=== PATIENT | male | born 1970 | race Caucasian/White ===

== ENCOUNTER 2025-06-05 10:36 | Emergency (ER) | payer MEDICAID ==
[~2025-06-05] VITALS: Ht 193 cm; Wt 142.9 kg
[2025-06-05 11:51] LABS: PLATELET COUNT (AUTO) 337 K/uL (150-450); RED BLOOD CELL COUNT(AUTO) 5.57 MIL/uL (4.5-6.0); RED CELL DISTRIBUTION WIDTH 16.3 % (11.5-15.0); WHITE BLOOD COUNT (AUTO) 12.6 K/uL (4.3-11.0)
[2025-06-05 12:05] LABS: CALCIUM, SERUM 9.5 mg/dL (8.5-10.1); CREATININE 1.2 mg/dL (0.6-1.3); INR 1.05 (0.91-1.10); SODIUM SERUM 140 mmol/L (136-145); UREA NITROGEN, BLOOD 18 mg/dL (7-18)
[2025-06-05 12:10] VITALS: TEMP 97.9
[2025-06-05 12:18] LABS: ASPARTATE AMINOTRANSFERASE 27 U/L (15-37); NT-PRO BNP 11 pg/mL (0-125); TOTAL PROTEIN, SERUM 8.4 g/dL (6.4-8.2)
[2025-06-05] MEDS ORDERED: PRED50TA PO (12:40)
[2025-06-05] MEDS ORDERED: ALBU18HF2 INH (12:40)
[2025-06-05] MEDS ORDERED: POTASSIUM CL. PREMIX PERIPHER. 50 ML IV SCH (13:00)
[2025-06-05] MEDS ORDERED: POTASSIUM CHLORIDE 20 MEQ TAB.PRT.SR PO ONE (13:05)
[2025-06-05] MEDS: POTASSIUM CHLORIDE 20 MEQ TAB.PRT.SR PO ONE (13:12)
[2025-06-05] MEDS ORDERED: POTA20TA83 PO (13:23)
[2025-06-05 13:58] VITALS: BP 128/102; O2SAT 94
== END 2025-06-05 13:59 | disposition home or self-care (01) ==
LOC: ER 10:40
DX: R06.02 Shortness of breath (principal); R05.9 Cough, unspecified; J44.1 Chronic obstructive pulmonary disease with (acute) exacerbation; I10 Essential (primary) hypertension; E87.6 Hypokalemia; E78.00 Pure hypercholesterolemia, unspecified; E11.9 Type 2 diabetes mellitus without complications; Z79.52 Long term (current) use of systemic steroids; Z79.899 Other long term (current) drug therapy; Z87.891 Personal history of nicotine dependence; Z60.2 Problems related to living alone; Z20.822 Contact with and (suspected) exposure to COVID-19
CPT/HCPCS: 36415; 71045-TC; 80048-TC; 80076-TC; 83880; 84484-TC; 85025-TC; 85378-TC; 85730-TC